=== PATIENT | female | born 1990 | race Caucasian/White ===

== ENCOUNTER 2020-11-12 18:18 | Emergency (ER) | payer SELFPAY ==
[~2020-11-12] VITALS: Ht 170.2 cm; Wt 77.0 kg
[~2020-11-12 18:18] MED LIST: BUPR1FIL3 PO; QUET100T4 PO
[2020-11-12 18:28] VITALS: BP 144/77
--- NOTE | 2020-11-12 19:06 | NUR ---
[id number]
--- NOTE | 2020-11-12 21:34 | NUR ---
NA X 1 1931, NA X 2 1944, NA X 3 1949
== END 2020-11-12 20:30 | disposition left against medical advice (07) ==
LOC: ED 18:45
DX: R22.43 Localized swelling, mass and lump, lower limb, bilateral (principal); Z53.21 Procedure and treatment not carried out due to patient leaving prior to being seen by health care provider